=== PATIENT | male | born 1960 | race Caucasian/White ===

== ENCOUNTER 2019-05-30 20:47 | Emergency (ER) | payer SELFPAY ==
[2019-05-30] VITALS (32 sets, daily range): BP systolic 100–128; BP diastolic 73–87; PULSE 79–99; RESP 16; TEMP 36.4; O2SAT 99–100; BMI 31.5
--- NOTE | 2019-05-30 21:05 | PC.NURSE ---
patient states he started having dark red blood in his stool this afternoon. patient states he has a history of ulcerative colitis. patient states he felt like he was going to pass out today a few times.
--- NOTE | 2019-05-30 21:10 | ECG_ITS ---
Measurements Intervals [place] Rate: 84 P: 14 MT: 143 QRS: 26 QRSD: 90 T: 31 QT: 362 QTc: 430 SINUS RHYTHM WITH SINUS ARRHYTHMIA NONSPECIFIC T-WAVE ABNORMALITY No previous ECG available for comparison Electronically Signed On 05-31-2019 9:37:55 CDT by Aimee Adamson M.D. [email or web address]
--- NOTE | 2019-05-30 21:11 | XRR_ITS ---
PROCEDURE INFORMATION: Exam: XR Chest, 1 View Exam date and time: 05/30/2019 9:11 PM Age: 58 years old Clinical indication: Other: Syncope and blood in stool TECHNIQUE: Imaging protocol: XR of the chest Views: 1 view. COMPARISON: No relevant prior studies available. FINDINGS: Lungs: Unremarkable. No consolidation. Pleural space: Unremarkable. No pleural effusion. No pneumothorax. Heart/Mediastinum: Unremarkable. No cardiomegaly. Bones/joints: Unremarkable. XR/XR chest 1V portable [id number] IMPRESSION: No acute findings.
--- NOTE | 2019-05-30 21:12 | ED_ITS ---
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 He is feeling fine now. 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 and then did not drink a lot of fluids either MD complaint: melena Onset (ago): hour(s) (1930 tonight) Severity: mild Context: other (History of ulcerative colitis) Associated symptoms: Denies abdominal pain, chills, easy bruising, fever(s), headache(s), nausea, rash or vomiting Review of Systems Const: Denies: fever, chills or body aches Eyes: Denies: change in vision or blurry vision ENMT: Denies: throat pain or nasal congestion Card: Denies: chest pain or shortness of breath on exertion Resp: Denies: shortness of breath, productive cough or non-productive cough GI: Reports: blood in stool; Denies: abdominal pain, nausea or vomiting : Denies: difficulty urinating Musc: Denies: extremity pain Skin/Breast: Denies: rash Neuro: Denies: headache Psych: Denies: anxiety or depression Brent/Lymph: Denies: easy bruising PFSH ED PFSH: Social History Smoking and tobacco status: never smoked Alcohol intake: current Alcohol intake frequency: holidays/special occasions only Physical Exam Const: COMMON NORMALS: no apparent distress, average body habitus and oriented x3 HENMT: COMMON NORMALS: normocephalic HEAD & SCALP: normal to inspection and normocephalic FACE & SINUS: normal facial exam Eye: COMMON NORMALS: conjunctivae normal GENERAL EYE: normal appearance of both eyes CONJUNCTIVA: Yes conjunctivae normal Neck/C-Spine: COMMON NORMALS: no JVD Chest: COMMONS NORMALS: inspection of chest normal Resp: COMMON NORMALS: normal respiratory effort and clear to auscultation bilaterally AUSCULTATION: clear to auscultation bilaterally Cardio: COMMON NORMALS: no JVD, regular rate and regular rhythm RATE: regular rate RHYTHM: regular rhythm GI: COMMON NORMALS: normal to inspection, nondistended, normoactive bowel sounds Extremity: COMMON NORMALS: normal to inspection and full ROM Neuro: COMMON NORMALS: oriented x3 Course Vital Signs: Vital signs: Vital Signs Temperature 97.6 F 05/30/19 20:59 Pulse Rate 85 05/31/19 00:36 Respiratory Rate 14 05/31/19 00:36 Blood Pressure 122/77 05/31/19 00:36 Pulse Oximetry 98 05/31/19 00:36 MDM - GI Bleed MDM Narrative: Medical decision making narrative: Discussed case with Dr. Coleman patient has not had a bloody bowel movement while here. Patient feels much better. CT shows mild colitis. Patient follow-up with primary care or if worsening symptoms return here. Lab Data: Labs: Lab Results 05/30/19 05/30/19 05/30/19 Range/Units 21:15 21:15 21:15 WBC 12.5 H (4.0-10.0) 10^3/ uL RBC 3.82 L (4.1-5.3) 10^6/u L Hgb 12.3 (11.7-16.6) g/dL Hct 37.6 L (42.0-52.0) % MCV 98.4 H (80-94) fL MCH 32.2 (28.0-34.0) pg MCHC 32.7 (30.0-36.0) g/dL RDW 13.8 (12.1-15.1) % Plt Count 224 (130-400) 10^3/c mm MPV 10.2 (7.4-10.4) fL Neut % (Auto) 79.1 % Lymph % (Auto) 13.0 % Kane % (Auto) 4.5 % Eos % (Auto) 2.6 % Baso % (Auto) 0.5 % Neut # (Auto) 9.9 H (1.8-7.7) 10^3/u L Lymph # (Auto) 1.6 (0.8-4.8) 10^3/u L Kane # (Auto) 0.6 (0.2-0.9) 10^3/u L Eos # (Auto) 0.3 (0.0-0.8) 10^3/u L Baso # (Auto) 0.1 (0.0-0.1) 10^3/u L Nucleated RBC % (a uto) 0 % Nucleated RBCs # 0.0 /100WBC PT 13.90 H (10.5-13.3) SECO NDS INR 1.04 (0.8-1.2) Sodium 135 L (136-145) mmol/L Potassium 4.9 (3.5-5.1) mmol/L Chloride 100 (98-107) mmol/L Carbon Dioxide 25 (22-29) mmol/L Anion Gap 14.9 (5-19) BUN 13 (6-20) mg/dL Creatinine 1.1 (0.7-1.2) mg/dL GFR Calculation 69.2 L (90-130) mL/min Glucose 228 H (65-115) mg/dL Calculated Osmolal ity 283 L (285-295) mOsm/k g Calcium 9.1 (8.5-10.5) mg/dL Total Bilirubin 0.5 (0.15-1.2) mg/dL AST 18 (0-40) U/L ALT 17 (0-41) U/L Alkaline Phosphata se 61 (40-130) IU/L Total Protein 6.6 (6.6-8.7) g/dL Albumin 3.7 (3.5-5.2) g/dL Globulin 2.9 (1.3-4.6) g/dL EKG Data^: EKG 1: EKG interpretation date: 05/30/19 EKG interpretation time: 21:20 Interpretation: SR ventricular rate 84 bpm RI interval 143 ms QRS duration 90 ms nonspecific T wave abnormality Discharge Plan Discharge Patient Disposition: Home, Self-Care Clinical Impression: Colitis, Acute dehydration Condition: Stable Prescriptions: New prednisone 20 mg tablet 60 mg PO DAILY 10 Days Qty: 30 RF: 0 No Action celecoxib 200 mg capsule 200 mg PO BID RF: 0 epinephrine 0.3 mg/0.3 mL auto-injector 0.3 mg IM ONCE RF: 0 allopurinol 300 mg tablet 150 mg PO ONCE 90 Days Qty: 90 RF: 1 mesalamine [Lialda] 1.2 gram tablet,delayed release (DR/EC) 2.4 gm PO ONCE Qty: 180 RF: 1 Discharge Orders: Discharge Order (Routine); Ordered 05/31/19 Ordered By: Gabriel Rinaldi Referrals: Alexa Khanna MD [Primary Care Provider] - Discharge Diet: Advance as tolerated Discharge Activity: Increase activity as tolerated Patient Instructions: Dehydration (ED), Ulcerative Colitis (ED) Activity Restrictions/Additional Instructions: Follow-up with medical provider as directed. Take medications as prescribed. Return to the ER or your medical provider if condition worsens. Please read and understand discharge instructions. If any questions ask please. Follow-up with your primary care provider about your high sugar reading and about your bleeding that you had. Return to the ER if bleeding worsens or returns. Rest during the weekend. Drink plenty of fluids. 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
--- NOTE | 2019-05-30 21:22 | PC.NURSE ---
XRAY in room
[2019-05-30 21:37] LABS: Basophils # 0.1 10^3/uL (0.0-0.1); Basophils % 0.5 %; Eosinophils # 0.3 10^3/uL (0.0-0.8); Eosinophils % 2.6 %; Hematocrit 37.6 % (42.0-52.0); Hemoglobin 12.3 g/dL (11.7-16.6); Lymphocytes # 1.6 10^3/uL (0.8-4.8); Mean Corpuscular HGB Conc 32.7 g/dL (30.0-36.0); Mean Corpuscular Hemoglobin 32.2 pg (28.0-34.0); Mean Corpuscular Volume 98.4 fL (80-94); Mean Platelet Volume 10.2 fL (7.4-10.4); Monocytes # 0.6 10^3/uL (0.2-0.9); Monocytes % 4.5 %; Neutrophils # 9.9 10^3/uL (1.8-7.7); Neutrophils % 79.1 %; Nucleated Red Blood Cells % 0 %; Platelet Count 224 10^3/cmm (130-400); Red Blood Count 3.82 10^6/uL (4.1-5.3); Red Cell Distribution Width 13.8 % (12.1-15.1); White Blood Count 12.5 10^3/uL (4.0-10.0)
[2019-05-30] MEDS: predniSONE 20 mg Tablet 60 MG PO (21:48)
[2019-05-30 21:49] LABS: INR 1.04 (0.8-1.2)
[2019-05-30] MEDS: sodium chloride 0.9% 1,000 ML 999 ML IV (21:49)
[2019-05-30 21:58] LABS: Alanine Aminotransferase 17 U/L (0-41); Albumin Level 3.7 g/dL (3.5-5.2); Alkaline Phosphatase 61 IU/L (40-130); Anion Gap 14.9 (5-19); Aspartate Amino Transferase 18 U/L (0-40); Blood Urea Nitrogen 13 mg/dL (6-20); Calcium 9.1 mg/dL (8.5-10.5); Carbon Dioxide 25 mmol/L (22-29); Chloride 100 mmol/L (98-107); Creatinine Clr Calc Pharmacy 88.7897; Globulin 2.9 g/dL (1.3-4.6); Glomerular Filtration Rate 69.2 mL/min (90-130); Glucose 228 mg/dL (65-115); Osmolality Calculated 283 mOsm/kg (285-295); Potassium 4.9 mmol/L (3.5-5.1); Sodium 135 mmol/L (136-145); Total Bilirubin 0.5 mg/dL (0.15-1.2); Total Protein 6.6 g/dL (6.6-8.7)
--- NOTE | 2019-05-30 22:31 | CTR_ITS ---
PROCEDURE INFORMATION: Exam: CT Abdomen And Pelvis With Contrast Exam date and time: 05/30/2019 11:38 PM Age: 58 years old Clinical indication: Other: Rectal bleeding; Additional info: Gi bleed TECHNIQUE: Imaging protocol: Computed tomography of the abdomen and pelvis with intravenous contrast. Sagittal and coronal reformatted images were created and reviewed. Total DLP: 1351.42 mGy-cm Radiation optimization: All CT scans at this facility use at least one of these dose optimization techniques: automated exposure control; mA and/or kV adjustment per patient size (includes targeted exams where dose is matched to clinical indication); or iterative reconstruction. Contrast material: OMNI 300; Contrast volume: 95 ml; Contrast route: 20G; COMPARISON: CT abdomen pelvis w con* [id number] 08/18/2014 1:12 PM FINDINGS: Lungs: Visualized lungs are clear. Noncalcified nodule in the right middle lobe with an average measurement of 3 mm (series 2, image 5). Findings are stable. Pleural space: No pleural effusion. Heart: Visualized portions of the heart are unremarkable. Liver: Hypodense focus in the liver that cannot be further characterized on the current examination. This measures 5.3 mm (series 2, image 16). Findings are stable. Gallbladder and bile ducts: The gallbladder is unremarkable. No biliary ductal dilatation. Pancreas: The pancreas is unremarkable. No pancreatic ductal dilatation. Spleen: The spleen is unremarkable. Adrenals: The right and left adrenal glands are unremarkable. Kidneys and ureters: The right and left kidneys are unremarkable. The right and left ureters are unremarkable. Stomach and bowel: Ingested contents in the stomach. Nonspecific air-fluid levels present in the small bowel. No dilated bowel loops. There is mild wall thickening with surrounding mild inflammatory change of the mid descending colon through the proximal sigmoid colon. Fatty infiltration of the wall of the distal sigmoid colon and rectum. Findings suggest sequela of chronic inflammation. No evidence for gastrointestinal bleed. Appendix: Appendix not definitely visualized. No inflammatory changes in the pericecal region however. Intraperitoneal space: No extravasation of contrast from the abdominopelvic vessels. Vasculature: Mild atherosclerotic changes in the visualized arteries. No evidence for aortic aneurysm or aortic dissection. Hepatic veins, portal veins, splenic vein, and SMV are patent. Lymph nodes: No lymphadenopathy. Bladder: Stable diffuse, moderate wall thickening of the bladder. Reproductive: Stable nonspecific parenchymal calcifications in the prostate gland. Bones/joints: Moderate degenerative changes of the right and left sacroiliac joints. Mild degenerative changes at both the right and left hips. Multilevel degenerative changes of varying severity in the visualized spine. Multilevel foraminal stenosis of varying severity in the lumbar spine. Soft tissues: No acute abnormality in the extra-abdominal soft tissues. CT/CT abdomen pelvis w con* [id number] IMPRESSION: 1. Findings consistent with mild colitis in the mid descending colon through the proximal sigmoid colon. 2. No evidence for gastrointestinal bleed. Nuclear medicine imaging with tagged red blood cell scan may be obtained for further evaluation clinical concern for gastrointestinal bleed persists. 3. Stable noncalcified nodule in the right middle lobe. Stability over several years would indicate this is due to a benign process such as a noncalcified granuloma. 4. Stable hypodense focus in the liver that cannot be further characterized on the current examination. 5. Stable diffuse, moderate wall thickening of the bladder. In the correct clinical setting, this may suggest cystitis. Recommend correlation with laboratory findings. Alternatively, this may be secondary to chronic outlet obstruction. 6. Incidental/nonacute findings are listed in the report. Radiation Dose CTDIVOL = (mGy): DLP = 1351.42 (mGy-cm)
[2019-05-30] MEDS: iohexol 300 mg/mL 100 mL Btl IV (23:52)
[2019-05-31 00:12] VITALS: BP 125/82; PULSE 80; RESP 14; O2SAT 100
[2019-05-31 00:36] VITALS: BP 122/77; PULSE 85; RESP 14; O2SAT 98
== END 2019-05-31 00:38 | disposition home or self-care (01) ==
PROVIDERS: Emergency Provider Nurse Practitioner Family; Family Provider Family Medicine; PCP Family Medicine
DX: K52.9 Noninfective gastroenteritis and colitis, unspecified (principal); E86.0 Dehydration
CPT/HCPCS: 12345; 71045; 74177; 80053; 85025; 85610; 93005; 96360; 96361; 99284; J7030; J7512; Q9967

== ENCOUNTER 2019-09-03 19:05 | Emergency (ER) | payer SELFPAY ==
[2019-09-03 19:07] VITALS: BP 139/96; PULSE 77; RESP 18; TEMP 36.7; O2SAT 96; BMI 30.1
--- NOTE | 2019-09-03 19:26 | XRR_ITS ---
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 ; Initial encounter; Injury date: 09/03/19; Injury details: Has laceration 2nd digit right hand near pip joint. Previous thumb amputation; Prior surgery; Surgery date: 6+ months; Additional info: Injury with laceration TECHNIQUE: Imaging protocol: XR Right hand. Views: 3 or more views. COMPARISON: No relevant prior studies available. FINDINGS: Bones/joints: Prior trauma 5th metacarpal. 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 No acute process visualized. Degenerative changes are present in the distal interphalangeal joints Severe degenerative changes first carpometacarpal joint. Apparent soft tissue laceration at the level of the proximal interphalangeal joint of the 2nd ray radially. No osseous abnormality. No foreign body. XR/XR hand RT min 3V* [id number] IMPRESSION: Apparent soft tissue laceration at the level of the proximal interphalangeal joint of the 2nd ray radially. No osseous abnormality. No foreign body. 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 No acute process visualized. Severe degenerative changes first carpometacarpal joint.
--- NOTE | 2019-09-03 19:27 | W.ED.TRAUMA ---
HPI - Trauma General: Chief Complaint: Trauma Stated Complaint: right finger lac Time Seen by Provider: 09/03/19 19:26 History of Present Illness: HPI narrative: Patient is a 59-year-old man that comes to the ED with laceration on his right hand. 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 Laceration is on the second digit of the right hand. Bleeding has stopped. Patient was seen in urgent care and was then sent directly over here to the ED. Patient still has full range of motion of second digit. Patient says he does need to have an updated tetanus shot. Associated symptoms: Denies abdominal pain, back pain, chest pain, chills, fever(s), headache(s), nausea or vomiting Review of Systems Const: Denies: fever(s), chills or fatigue Eyes: Denies: change in vision or eye discomfort ENMT: Denies: throat pain, odynophagia, nasal discharge or nasal congestion Card: Denies: chest pain, palpitations, edema, swelling of feet/ankles, dyspnea on exertion or orthopnea Resp: Denies: dyspnea, productive cough or non-productive cough GI: Denies: abdominal pain, nausea, vomiting, diarrhea, constipation or hematochezia : Denies: flank pain, difficulty urinating, dysuria or hematuria Musc: Denies: neck pain, back pain or extremity swelling Skin/Breast: Reports: new lesions (laceration to right 2nd digit); Denies: rash Neuro: Denies: headache(s), numbness in extremities or weakness in extremities [facility] ED PFSH: 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 Surgical History S/P [place] 09/21/2014 COLITIS- [place] [facility] [place] Other Diabetes Social History Smoking and tobacco status: never smoked Alcohol intake: current Alcohol intake frequency: holidays/special occasions only Physical Exam Const: COMMON NORMALS: no acute distress, patient oriented x3, healthy appearing and alert GENERAL APPEARANCE: cooperative and comfortable HENMT: COMMON NORMALS: normocephalic HEAD & SCALP: normocephalic MOUTH: Normal oral and palatal mucosa present THROAT: posterior oropharynx normal and uvula midline Eye: COMMON NORMALS: Equal, round and reactive pupils present PUPIL: Yes Equal, round and reactive pupils present Neck/C-Spine: COMMON NORMALS: supple GENERAL: Yes normal visual inspection Resp: COMMON NORMALS: normal respiratory effort, No retractions, No use of accessory muscles and clear to auscultation bilaterally AUSCULTATION: clear to auscultation bilaterally Cardio: COMMON NORMALS: regular rate, regular rhythm, S1 normal heart sound present, S2 normal heart sound present, No gallops present (Cardio), No clicks present (Cardio), No murmurs present (Cardio) and Peripheral pulses 2+ throughout RATE: regular rate RHYTHM: regular rhythm HEART SOUNDS: S1 normal heart sound present and S2 normal heart sound present PERIPHERAL PULSES: Peripheral pulses 2+ throughout GI: COMMON NORMALS: Normal to inspection, nondistended, normoactive bowel sounds present, Soft to palpation, non-tender and no masses PALPATION: Yes Soft to palpation : COMMON NORMALS: Yes no CVA tenderness BLADDER/KIDNEY EXAM: Yes no CVA tenderness Back/Pelvis: COMMON NORMALS: no CVA tenderness Extremity: COMMON NORMALS: no pedal edema GENERAL: Yes normal exam except as noted RIGHT UPPER EXTREMITY: Yes hand & digits Right hand and digits: Yes inspection (Patient has 1.5 cm laceration on the second digit and it is located near the PIP joint. Is not currently bleeding.), Yes ROM exam (Full range of motion), Yes neurovascular exam (Intact) and Yes tendon exam (Intact) Neuro: COMMON NORMALS: patient oriented x3 and moves all extremities SENSORIUM/ORIENTATION: Yes alert Skin: NARRATIVE SKIN EXAM: Laceration details discussed in the extremity section of physical exam. GENERAL SKIN EXAM: dry skin Procedures Laceration Laceration 1: Site: hand (index finger) Side (If applicable): right Size (cm): 1.5 Description: linear and clean Depth: simple, single layer Local Anesthetic: lidocaine 2% and other anesthetic (Digital block was performed with 2% lidocaine.) Amount of anesthesia used (mL): 10 Pre-repair: irrigated extensively (With normal saline and cleaned with CHG swab) Skin layer closed with: nylon Size (cm): 4-0 Number of sutures: 6 Technique: simple, interrupted Nerve Block Nerve Block 1: Time out performed: Yes Local Anesthetic: lidocaine 2% Amount of anesthesia used (mL): 10 Side: right Nerve Blocks: digital Procedure Successful: Yes Patient Tolerated Procedure: well and no complications Complications: none MDM - Trauma Imaging Data^: Xray Ortho: Attestation: I personally reviewed and interpreted this imaging study as follows: My impression: Right hand x-ray showed no acute fractures or foreign body. Pending final radiology report. Discharge Plan Discharge Patient Disposition: Home, Self-Care Clinical Impression: Finger laceration Qualifiers: Encounter type: initial encounter Finger: index finger Damage to nail status: without damage Foreign body presence: without foreign body Laterality: right Qualified Code(s): S61.210A - Laceration without foreign body of right index finger without damage to nail, initial encounter Condition: Stable Prescriptions: New Keflex 500 mg capsule 500 mg PO Q6H 3 Days Qty: 12 RF: 0 No Action epinephrine 0.3 mg/0.3 mL auto-injector 0.3 mg IM ONCE RF: 0 (DME) Glucocard Vital Test Strips Strip See Rx Instructions .ROUTE .MEDSUPPLY Qty: 100 RF: 0 aspirin 81 mg Tablet,Delayed Release (Dr/Ec) 81 mg PO DAILY RF: 0 allopurinol 300 mg tablet 150 mg PO DAILY RF: 0 Discharge Orders: Discharge Order (Routine); Ordered 09/03/19 Ordered By: Franki Gray Referrals: Jus Membreno MD [Primary Care Provider] - Discharge Diet: Regular Discharge Activity: Increase activity as tolerated Patient Instructions: Suture Care (ED), Laceration (ED) Activity Restrictions/Additional Instructions: Take full course of antibiotics as prescribed. Keep laceration site clean and dry for the next 48 hours. Then after that you can clean and re-bandage daily. Watch for signs of infection such as redness, warmth, increased tenderness and puslike drainage. If you see the signs of infection return to the ED, urgent care or PCP for reevaluation. call your PCP to schedule a follow-up appointment for reevaluation in the next 7 to 10 days and to get sutures removed. Continue taking all home meds. Follow discharge plans as discussed. You can return to the ED if symptoms worsen. 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
[2019-09-03] MEDS: cephALEXin 500 mg Capsule PO (20:02)
[2019-09-03] MEDS: tetanus-dipt-pertussis 0.5 mL SDV IM (20:10)
[2019-09-03] MEDS: lidocaine 2% INJ 20 mL INJECTION (20:19)
[2019-09-03 23:22] VITALS: BP 134/94; PULSE 80; RESP 16; TEMP 36.4; O2SAT 97
== END 2019-09-03 21:05 | disposition home or self-care (01) ==
PROVIDERS: Emergency Provider Physician Assistant; PCP Internal Medicine
DX: S61.210A Laceration without foreign body of right index finger without damage to nail, initial encounter (principal); W26.8XXA Contact with other sharp object(s), not elsewhere classified, initial encounter; Z79.82 Long term (current) use of aspirin; Z23 Encounter for immunization
CPT/HCPCS: 12001; 12345; 73130; 90471; 90715; 99282; 99283; J2001

== ENCOUNTER 2019-09-26 08:23 | Day surgery (SDC) | payer SELFPAY ==
[2019-09-25 13:43] VITALS: BMI 29.9
[2019-09-26 08:43] VITALS: BP 157/109; PULSE 98; RESP 18; TEMP 36.6; O2SAT 98
[2019-09-26] MEDS: sodium chloride 0.9% 1,000 ML 30 ML IV (08:54)
--- NOTE | 2019-09-26 08:56 | ANES.PREANE2 ---
Pre-Anesthetic Assessment Pre-Anesthetic Assessment: Height/Weight: Height 1.78 m Weight 94.801 kg Temp Pulse Resp BP Pulse Ox 97.8 F 98 18 157/109 98 09/26/19 08:43 09/26/19 08:43 09/26/19 08:43 09/26/19 08:43 09/26/19 08:43 Preop Diagnosis: colitis Proposed Procedure: Operation Date: 09/26/19 09:30 Proposed Procedures p Colonoscopy 77493 K51.30(Not Applicable) - Jus Membreno MD Familial anesthetic complications: none Last intake: Intake NPO > 8 hrs Last Liquid Date 09/26/19 Last Liquid Time 22:00 Last Solid Date 09/25/19 Last Solid Time 22:00 Social: Social History: No alcohol and No tobacco Exam: Pre-Anes Outpt Exam: alert, oriented x 3, clear to auscultation bilaterally and regular rate & rhythm Airway: Cervical ROM: WNL MP: 3 Dentition: Full Pulmonary: Pulmonary: None reported GI: Comments: ulcerartive colitis Musc/skel: Comments: gout Neuropsych: Neuropsych: None reported Anesthetic Plan: ASA status: 2 Risk of > 500 ml blood loss (7ml/kg in children): No Meds/Allergies Current Medications: Current Medications Generic Name Dose Route Start Last Admin Trade Name Freq PRN Reason Stop Dose Admin Sodium Chloride 1,000 mls @ 30 ml s/hr 09/26/19 08:45 09/26/19 08:54 Sodium Chloride 0.9% IV 09/27/19 08:44 30 mls/hr .Q24H MARY CARMEN Administration PFSH Anesthesia PFSH: Medical History (Updated 09/11/19 @ 00:00 by ) Ulcerative rectosigmoiditis without complication Surgical History S/P colonoscopy 09/21/2014 COLITIS- DR ALLRED- [facility] [place] Family History Other Diabetes Social History Smoking and tobacco status: never smoked Alcohol intake: current Alcohol intake frequency: holidays/special occasions only Data Anesthesia Cardiac Studies: No Data to Display
--- NOTE | 2019-09-26 10:08 | W.PM.OPSUD ---
Surgery/Procedure H&P Update DATE OF PROCEDURE: September 26, 2019 PREOP DIAGNOSIS: colitis PLANNED PROCEDURE: Operation Date: 09/26/19 09:30 Proposed Procedures p Colonoscopy 55657 K51.30(Not Applicable) - Jus Membreno MD
--- NOTE | 2019-09-26 10:10 | W.PM.OPSFHP ---
Same Day Surgery H&P Indication for Procedure/HPI DATE OF PROCEDURE: September 26, 2019 CHIEF COMPLAINT/INDICATIONFOR SURGICAL PROCEDURE: Hematochezia with a history of ulcerative colitis. PREOP DIAGNOSIS: colitis PLANNED PROCEDRUE: Operation Date: 09/26/19 09:30 Proposed Procedures p Colonoscopy 49424 K51.30(Not Applicable) - Jus Membreno MD Medications/Allergies* Home Medications Medication Instructions Recorded Confirmed Type epinephrine 0.3 mg/0.3 mL 0.3 mg IM ONCE PRN 03/03/19 09/26/19 History injection, auto-injector allopurinol 300 mg PO DAILY 09/03/19 09/26/19 History aspirin 81 mg PO DAILY 09/03/19 09/26/19 History mesalamine 2.4 g PO DAILY 09/25/19 09/26/19 History Allergies/Adverse Reactions Allergy/AdvReac Type Severity Reaction Status Date / Time No Known Allergies Allergy Verified 09/03/19 19:35 Current Medications: Generic Name Dose Route Start Last Admin Trade Name Freq PRN Reason Stop Dose Admin Sodium Chloride 1,000 mls @ 30 mls/hr 09/26/19 08:45 09/26/19 08:54 Sodium Chloride 0.9% IV 09/27/19 08:44 30 mls/hr .Q24H MARY CARMEN Administration Pertinent History/Comorbid Conditions* Medical History (Updated 09/11/19 @ 00:00 by ) Ulcerative rectosigmoiditis without complication Surgical History (Updated 03/17/19 @ 10:54 by Jus Membreno MD) S/P colonoscopy 09/21/2014 COLITIS- [place] ALLRED[place] [facility] [place] Family History (Updated 03/03/19 @ 12:53 by Katy Henry LPN) Diabetes Social History Smoking and tobacco status: never smoked Alcohol intake: current Alcohol intake frequency: holidays/special occasions only Pertinent Exam Findings alert, oriented x 3, clear to auscultation bilaterally, regular rate & rhythm, operative site marked and procedure specific exam findings Recommendations Surgery/Procedure today Coding Level of Care 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
[2019-09-26 10:22] VITALS: BP 125/89; PULSE 96; RESP 18; TEMP 37.1; O2SAT 100
[2019-09-26 10:40] VITALS: BP 120/95; PULSE 90; RESP 16; O2SAT 100
== END 2019-09-26 09:50 | disposition home or self-care (01) ==
PROVIDERS: PCP Internal Medicine; Visit Provider Internal Medicine
PROC: 0DJD8ZZ Inspection of Lower Intestinal Tract, Via Natural or Artificial Opening Endoscopic (ICD-10-PCS; CPT 45378; principal; 2019-09-26 09:30)
DX: K92.1 Melena (principal); K63.89 Other specified diseases of intestine; Z79.82 Long term (current) use of aspirin; K52.9 Noninfective gastroenteritis and colitis, unspecified; K51.30 Ulcerative (chronic) rectosigmoiditis without complications
CPT/HCPCS: 12345; 45380; 88305; J2704; J7030

== ENCOUNTER → 2022-07-21 10:02 | Outpatient (BNVA) | payer OTHER, SELFPAY | PROVIDERS: PCP Family Medicine; Visit Provider Family Medicine | DX: N52.9 Male erectile dysfunction, unspecified (principal); K51.30 Ulcerative (chronic) rectosigmoiditis without complications; M10.9 Gout, unspecified; Z79.899 Other long term (current) drug therapy | CPT/HCPCS: 80053; 80061; 84550; 85025 ==

== ENCOUNTER → 2023-11-02 11:36 | Outpatient (BNVA) | payer OTHER, SELFPAY | PROVIDERS: PCP Family Medicine; Visit Provider Family Medicine | DX: Z12.5 Encounter for screening for malignant neoplasm of prostate (principal); M10.9 Gout, unspecified | CPT/HCPCS: 80053; 80061; 84153; 84550; 85025 ==

== ENCOUNTER 2024-08-12 16:40 | Emergency (ER) | payer OTHER, SELFPAY ==
[2024-08-12 16:46] VITALS: BP 148/79; PULSE 61; RESP 17; TEMP 36.6; O2SAT 97; BMI 31.5
--- NOTE | 2024-08-12 17:15 | W.ED.WOUNDLC ---
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 Patient reports that he did attempt to catch himself and thinks that the pipe that he caught himself on cut him when it broke. Patient is unsure when his last tetanus was updated. He is able to move his arm with no difficulty. States that it was bleeding significantly initially, but has since slowed. He denies hitting his head, loss of consciousness, any other pain at this time. Associated symptoms: Denies chills or fever(s) Related Data Home Medications ?Medication ?Instructions ?Recorded ?Confirmed mesalamine 0.375 gram g PO 08/12/24 08/12/24 capsule,extended release 24 hr Previous Rx's ?Medication ?Instructions ?Recorded sildenafil 100 mg tablet 100 mg PO DAILY PRN sexual 11/02/23 activity #30 tabs allopurinol 300 mg tablet See Rx Instructions .Route 11/07/23 .COMPLEX #90 tabs cephalexin 500 mg capsule 500 mg PO BID 7 days #14 caps 08/12/24 Allergies Allergy/AdvReac Type Severity Reaction Status Date / Time venom-wasp Allergy Severe ALGY-Anaphy Verified 08/12/24 16:06 laxis Review of Systems Const: Denies: fever(s), chills or body aches Musc: Denies: extremity pain or limited range of motion Skin/Breast: Reports: other (left elbow laceration) Neuro: Denies: headache(s) Brent/Lymph: Denies: easy bleeding PFSH ED PFSH: Medical History Amputation of left thumb Gouty arthritis Osteoarthritis Hymenoptera allergy Ulcerative rectosigmoiditis without complication Surgical History S/P [place]oscopy 09/21/2014 COLITIS- [place] [facility] [place] Other Diabetes Heart disease Denies family history of CAD (coronary artery disease) Clotting disorder Dementia Hyperlipidemia Psychiatric illness Chronic kidney disease (CKD) Anesthesia complication Bleeding disorder Lung disease Cancer Hypertension Stroke Social History Smoking and tobacco/nicotine status: never used tobacco/nicotine Alcohol intake: current Alcohol intake frequency: holidays/special occasions only Substance/Drug Use: never Lives independently: Yes Marital status: Number of children: 3 Current occupational status: employed 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 He is able to give history with no difficulty. He is interactive with exam appropriately. No family at bedside upon initial examination HENMT: COMMON NORMALS: normocephalic and atraumatic HEAD & SCALP: normocephalic and atraumatic Neck/C-Spine: COMMON NORMALS: full ROM Chest: CHEST: Yes Symmetrical chest wall rise Resp: COMMON NORMALS: normal respiratory effort EFFORT & INSPECTION: Yes able to speak in complete sentences Back/Pelvis: COMMON NORMALS: thoraco-lumbar ROM normal Extremity: COMMON NORMALS: full ROM and capillary refill normal LEFT UPPER EXTREMITY: Yes elbow joint Left elbow: Yes inspection (laceration proximal to elbow, dorsal aspect) and Yes ROM (FROM) Neuro: COMMON NORMALS: patient oriented x3 SENSORIUM/ORIENTATION: Yes alert Psych: ATTITUDE: Yes calm Skin: TRAUMA: laceration (left upper arm, just above elbow, dorsal aspect) linear, involves subcutaneous tissue and sensation intact Procedures Laceration Laceration 1: Site: upper extremity Side (If applicable): left Size (cm): 5.5 Description: linear Depth: simple, single layer Local Anesthetic: lidocaine 1% and with epi Amount of anesthesia used (mL): 5 Pre-repair: wound explored, irrigated extensively and deep structures intact Skin layer closed with: nylon Size (cm): 4-0 Number of sutures: 5 Technique: simple, interrupted Course Vital Signs: Vital signs: Vital Signs Temperature 97.8 F 08/12/24 16:46 Pulse Rate 61 08/12/24 16:46 Respiratory Rate 17 08/12/24 16:46 Blood Pressure 148/79 08/12/24 16:46 Pulse Oximetry 97 08/12/24 16:46 Oxygen Delivery Me thod Room Air 08/12/24 16:46 MDM - Wound/Laceration Medical Decision Making 64yo male presents with a laceration to the left elbow that occurred at approximately 1500 this afternoon when 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 Patient denies hitting his head, loss consciousness, any other concerns at this time. Unsure when last tetanus. Patient is nontoxic in appearance. Vital signs are stable. Wound copiously irrigated with saline and repaired with sutures. Patient did receive tetanus booster as well as cephalexin while in the emergency department. Prescription of cephalexin was sent to patient's pharmacy. Discussed wound care and need for sutures to be removed in about 10 days. Recommend patient follow-up with primary care in about 10 days for suture removal, sooner if concern of infection. Return precautions provided. Patient states understanding and has no further questions or concerns at this time. Differential Diagnosis Likely laceration No radiology studies performed this visit Discharge Plan Discharge Patient Disposition: Home Clinical Impression: Laceration of left upper extremity Qualifiers: Encounter type: initial encounter Qualified Code(s): S41.112A - Laceration without foreign body of left upper arm, initial encounter Condition: Stable Prescriptions: New cephalexin 500 mg capsule 500 mg PO BID 7 Days Qty: 14 0RF No Action sildenafil 100 mg tablet 100 mg PO DAILY PRN (Reason: sexual activity) Qty: 30 3RF Rx Instructions: administer 30 minutes to 4 hours before activity mesalamine 0.375 gram capsule,extended release 24hr PO allopurinol 300 mg tablet See Rx Instructions .ROUTE .COMPLEX Qty: 90 1RF Dose Instruction: TAKE ONE TABLET BY MOUTH DAILY Rx Instructions: TAKE ONE TABLET BY MOUTH DAILY Discharge Orders: Discharge ED (Routine); Ordered 08/12/24 Ordered By: Darnell Vernon Referrals: Tino Love MD [Primary Care Provider, Family Practice] Discharge Diet: Usual diet Discharge Activity: Increase activity as tolerated Patient Instructions: Laceration (ED), Pain Management Activity Restrictions/Additional Instructions: Your tetanus was updated today Gently wash the laceration at least twice daily with soap and water. You may apply antibiotic ointment. Please cover the bandage if you think the wound may become soiled. 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
[2024-08-12] MEDS: cephALEXin 500 mg Capsule PO (18:25)
[2024-08-12] MEDS: tetanus-dipt-pertussis 0.5 mL SDV IM (18:26)
[2024-08-12 18:34] VITALS: BP 145/101; PULSE 75; O2SAT 99
== END 2024-08-12 18:35 | disposition home or self-care (01) ==
PROVIDERS: Emergency Provider Nurse Practitioner; PCP Family Medicine
DX: S41.112A Laceration without foreign body of left upper arm, initial encounter (principal); W19.XXXA Unspecified fall, initial encounter
CPT/HCPCS: 12002; 90471; 90715; 99283; J9999